=== PATIENT | female | born 1955 | race Caucasian/White ===

== ENCOUNTER → 2021-10-13 | Outpatient (CLI) | payer MEDICARE ==
[2021-10-14 11:12] LABS: RHEUMATOID ARTHRITIS FACTOR 12.1 IU/mL (<14.0)
== END ==
LOC: LAB 09:56
PROVIDERS: Nurse Practitioner
DX: Z51.81 Encounter for therapeutic drug level monitoring (principal); M12.9 Arthropathy, unspecified; M10.9 Gout, unspecified; Z79.899 Other long term (current) drug therapy
CPT/HCPCS: 36415; 81374; 84550; 85652; 86038; 86140; 86200; 86431

== ENCOUNTER → 2021-11-03 | Outpatient (CLI) | payer MEDICARE | LOC: LAB 10:16 | DX: G60.8 Other hereditary and idiopathic neuropathies (principal); E55.9 Vitamin D deficiency, unspecified; E53.8 Deficiency of other specified B group vitamins; E53.1 Pyridoxine deficiency; E51.9 Thiamine deficiency, unspecified; R25.2 Cramp and spasm; R79.89 Other specified abnormal findings of blood chemistry | CPT/HCPCS: 36415; 82607; 82652; 82728; 82746; 83735; 84207; 84425 ==